=== PATIENT | male | born 1980 | race Caucasian/White ===

== ENCOUNTER 2022-12-31 21:49 | Inpatient (IN) | payer BC, MEDICARE ==
[2022-12-31 23:05] LABS: Actual Bicarbonate (HCO3a) 55.1 mEq/L (22-28); Analyzer IN Cardio ER; Base Excess (BEa) 24.4 mEq/L (-2.0 to +3.0); Calcium, Ionized (arterial) 1.16 mmol/L (1.12-1.30); Carboxyhemoglobin (COHb) 0.3 gm% (0.0-3.0); Hematocrit-ABG 32 % (42.0-52.0); Hemoglobin (Hb) 10.9 g/dL (14.0-18.0); O2 Tension (PaO2), arterial 64.4 mmHg (80.0-100.0); Potassium - ABG Lab 4.28 mmol/L (3.70-5.30); pH, Arterial 7.334 (7.35-7.45)
[2023-01-01 01:34] LABS: #Lymphocytes 0.4 thou/uL (1.20-3.40); #Monocytes 1.2 thou/uL (0.11-0.59); #Neutrophils 13.1 thou/uL (1.40-6.50); %Eosinophils 0.1 % (0.0-10.0); %Lymphocytes 2.8 % (21.0-51.0); %Monocytes 8.4 % (0.0-10.0); %Neutrophils 88.7 % (42.0-75.0); Hemoglobin 10.8 g/dL (14.0-18.0); Mean Corpuscular HGB CONC 32.8 g/dL (32.0-36.0); Mean Corpuscular Hemoglobin 30.6 pg (27.0-31.0); Mean Corpuscular Volume 93.5 fl (78.0-98.0); Mean Platelet Volume 8.1 fL (7.4-10.4); Platelet Count 350 10x3/uL (130-400); RBC Distribution Width 13.7 % (11.5-14.5); Red Blood Cell (RBC) Count 3.53 mill/uL (4.70-6.10); White Blood Cell (WBC) Count 14.8 10x3/uL (4.8-10.8)
[2023-01-01 01:54] LABS: ALT (SGPT) 13 U/L (8-55); AST (SGOT) 18 U/L (5-34); Albumin 3.6 g/dL (3.5-5.0); Alkaline Phosphatase 140 U/L (40-110); BUN (Urea Nitrogen) 12 mg/dL (8.9-20.6); Bilirubin, Total 0.6 mg/dL (0.2-1.2); Calc. Creatinine Clearance 0 mL/min (70-130); Calcium 10.6 mg/dL (7.8-10.44); Estimated GFR 127; Globulin 3.9 g/dL (2.4-3.5); Glucose 81 mg/dL (70-105); Protein, Total 7.5 g/dL (6.0-8.3)
[2023-01-01 02:04] LABS: Anion Gap 18 mmol/L (10-20); Carbon Dioxide 46 mmol/L (22-29); Chloride 76 mmol/L (98-107); Potassium 4.5 mmol/L (3.5-5.1); Sodium 135 mmol/L (136-145)
[2023-01-01] MEDS ORDERED: Ondansetron PF 4 MG/2 ML Vial IVP PRN (05:41)
[2023-01-01] MEDS ORDERED: Acetaminophen 650 MG Suppository PR PRN (05:41)
[2023-01-01] MEDS ORDERED: Acetaminophen 325 MG TAB PO PRN (05:41)
[2023-01-01] MEDS ORDERED: Ondansetron ODT 4 MG TAB PO PRN (05:41)
[2023-01-01] MEDS ORDERED: Ipratropium/Albuterol 3 ML NEB NEB PRN (06:10)
[2023-01-01] MEDS ORDERED: Morphine 4 MG/ML VIAL SLOW IVP PRN (06:22)
[2023-01-01] MEDS: Ipratropium/Albuterol 3 ML NEB NEB SCH ×5 (07:15→22:17)
[2023-01-01] MEDS ORDERED: Ipratropium/Albuterol 3 ML NEB ONE (07:22)
[2023-01-01] MEDS ORDERED: Ondansetron PF 4 MG/2 ML Vial ONE (07:44)
[2023-01-01] MEDS: Morphine 4 MG/ML VIAL SLOW IVP PRN ×3 (14:41→20:10)
[2023-01-01] MEDS: Lorazepam 2 MG/ML VIAL SLOW IVP PRN ×3 (14:42→20:09)
[2023-01-01] MEDS: Gabapentin 400 MG CAP PO SCH ×2 (15:50→22:33)
[2023-01-01] MEDS: ALPRAZolam 1 MG TAB PO SCH ×2 (15:53→22:28)
[2023-01-01] MEDS: METHadone HCl 10 MG TAB PO SCH ×2 (15:54→22:29)
[2023-01-02] MEDS: Ipratropium/Albuterol 3 ML NEB NEB SCH ×2 (03:05→07:07)
[2023-01-02] MEDS: Morphine 4 MG/ML VIAL SLOW IVP PRN ×3 (03:41→09:12)
[2023-01-02] MEDS: Lorazepam 2 MG/ML VIAL SLOW IVP PRN ×2 (03:42→09:13)
[2023-01-02 09:00] VITALS: BP 147/98; TEMP 97.6
[2023-01-02] MEDS ORDERED: GABAPENTIN PO SCH (09:00)
[2023-01-02] MEDS: ALPRAZolam 1 MG TAB PO SCH (09:11)
[2023-01-02] MEDS ORDERED: HYDROmorphone 2 MG TAB PO PRN (09:25)
[2023-01-02] MEDS: METHadone HCl 10 MG TAB PO SCH (09:26)
[2023-01-02] MEDS ORDERED: HYDROmorphone 0.5 MG/0.5 ML SYRINGE SLOW IVP SCH (12:00)
[2023-01-02] MEDS: Gabapentin 400 MG CAP PO SCH (12:42)
[2023-01-02] MEDS ORDERED: Gabapentin 400 MG CAP PO SCH (13:00)
== END 2023-01-02 10:54 | disposition hospice, inpatient (51) | DRG 189 ==
LOC: ERS 21:49 → ERHOLD 01-01 03:49 → T4-A 01-01 12:49
PROVIDERS: ADMIT Student in an Organized Health Care Education/Training Program; ATTEND Emergency Medicine
PROC: 4A033R1 Measurement of Arterial Saturation, Peripheral, Percutaneous Approach (ICD-10-PCS; principal; 2023-01-01)
PROC: 5A09357 Assistance with Respiratory Ventilation, Less than 24 Consecutive Hours, Continuous Positive Airway Pressure (ICD-10-PCS; 2023-01-01)
DX: J96.00 Acute respiratory failure, unspecified whether with hypoxia or hypercapnia (principal); G93.41 Metabolic encephalopathy; R64 Cachexia; C78.00 Secondary malignant neoplasm of unspecified lung; J91.0 Malignant pleural effusion; Z51.5 Encounter for palliative care; Z66 Do not resuscitate; Z79.899 Other long term (current) drug therapy; Z87.891 Personal history of nicotine dependence; C80.1 Malignant (primary) neoplasm, unspecified
CPT/HCPCS: 36415; 71045; 80053; 82805; 85025; 94640; 94660; J1650; J2060; J2270; J2405; J7620; Q0162